=== PATIENT | male | born 1995 | race American Indian/Alaskan Native ===

== ENCOUNTER 2017-04-15 00:09 | Emergency (ER) | payer BC ==
[2017-04-15 00:28] VITALS: O2SAT 99
[2017-04-15] MEDS ORDERED: Lidocaine 1% Inj (20ml) INFIL STA (01:02)
[2017-04-15] MEDS ORDERED: Bacitracin 500 Units/gm Oint Foilpak UD TOP ONE (01:02)
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
[2017-04-15 02:41] VITALS: BP 130/76; PULSE 80; RESP 20; TEMP 98
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
== END 2017-04-15 02:40 | disposition home or self-care (01) ==
LOC: C.ER 00:09
DX: S60.212A Contusion of left wrist, initial encounter (principal); S00.93XA Contusion of unspecified part of head, initial encounter; S61.212A Laceration without foreign body of right middle finger without damage to nail, initial encounter; Y04.0XXA Assault by unarmed brawl or fight, initial encounter; Y99.0 Civilian activity done for income or pay

== ENCOUNTER 2017-04-16 15:26 | Emergency (ER) | payer BC ==
[2017-04-16 15:33] VITALS: BP 122/71; PULSE 65; RESP 18; TEMP 98; O2SAT 98
--- NOTE | 2017-04-16 15:50 | C.PDOC ---
History Of Present Illness 21 yo male, presents with wound check for right 4th digit. as per pt, no drainage, discharge, fevers. wound appears healing as per pt. sutures placed 2 days ago. Time Seen by Provider: 04/16/17 15:35 Chief Complaint (Nursing): Wound Check Past Medical History Reviewed: Historical Data, Nursing Documentation, Vital Signs Vital Signs: Last Vital Signs Temp 98 F 04/16/17 15:32 Pulse 65 04/16/17 15:32 Resp 18 04/16/17 15:32 BP 122/71 04/16/17 15:32 Pulse Ox 98 04/16/17 15:32 Family History: States: Unknown Family Hx - Social History Hx Tobacco Use: No Hx Alcohol Use: No Hx Substance Use: No - Immunization History Hx Tetanus Toxoid Vaccination: Yes Hx Influenza Vaccination: No Hx Pneumococcal Vaccination: No Review Of Systems Except As Marked, All Systems Reviewed And Found Negative. Skin: Positive for: Other (laceration) Physical Exam - Physical Exam Appears: Well, No Acute Distress Skin: Normal Color, Warm, Dry Eye(s): bilateral: Normal Inspection, PERRL, EOMI Nose: Normal Throat: Normal Neck: Normal Cardiovascular: Rhythm Regular Respiratory: Normal Breath Sounds Gastrointestinal/Abdominal: Normal Exam Back: Normal Inspection Extremity: Normal ROM, Other ((+)right 4th digit laceration with 2 sutures, c/d/ i, no dishcarge, erythema) ED Course And Treatment O2 Sat by Pulse Oximetry: 98 Medical Decision Making Medical Decision Making: healing wound, advise continued outpt measures and return precautions Disposition - Disposition Disposition: HOME/ ROUTINE Disposition Time: 15:50 Condition: STABLE Additional Instructions: please continue as instructed previously. return to er with worsening symptoms or concerns. Instructions: Laceration (ED), Care For Your Stitches (ED) Forms: Original (German) - Clinical Impression Clinical Impression: Visit for wound check
== END 2017-04-16 15:57 | disposition home or self-care (01) ==
LOC: C.ER 15:26
DX: Z51.89 Encounter for other specified aftercare (principal)